=== PATIENT | male | born 1965 | race Caucasian/White ===

== ENCOUNTER 2018-04-23 12:50 | Day surgery (SDC) | payer OTHER, MEDICAID ==
[~2018-04-23 12:50] MED LIST: cefOXitin SODIUM 2 GM in NS 100 ML IV ONE
[2018-04-23] MEDS ORDERED: LR 1,000 ML IV ONE (13:19)
--- NOTE | 2018-04-23 13:40 | PDHPUP ---
History & Physical Update H&P update statement: This history and physical update is based on an assessment of the patient which was completed after admission or registration (within 24 hours), but prior to the surgery/procedure. H&P update: H&P reviewed & patient examined, no change in patient's condition since H&P completed
[2018-04-23] MEDS ORDERED: METHYLENE BLUE 0.5% 50 MG/10 ML AMP ONE (14:36)
[2018-04-23] MEDS ORDERED: HYDROGEN PEROXIDE 236 ML BOTTLE TP ONE (14:36)
[2018-04-23] MEDS ORDERED: BUPIVACAINE/EPI 0.5% 30 ML SDV ONE (14:36)
[2018-04-23] MEDS ORDERED: MIDAZOLAM 2 MG/2 ML VIAL IVP ONE (15:48)
--- NOTE | 2018-04-23 15:52 | PDANEPAE ---
ANE History of Present Illness 53 year old obese male for exam under anesthesia and repair of anal fistula. History of severe depression on MAO inhibitor. Also chronic pain in knees and other joints, managed with Oxycontin 100mg/day and Oxycodone IR 70 mg/day. He has sleep apnea and was told to use C-PAP but he does not. He does no physical activity. ANE Past Medical History - Cardiovascular History Hx Hypertension: Yes Hx Arrhythmias: No Hx Chest Pain: No Hx Coronary Artery / Peripheral Vascular Disease: No Hx CHF / Valvular Disease: No Hx Palpitations: No - Pulmonary History Hx COPD: No Hx Asthma/Reactive Airway Disease: Yes Hx Recent Upper Respiratory Infection: Yes Hx Oxygen in Use at Home: Yes O2 in Use at Home (L/minute): 2 Hx Sleep Apnea: Yes Pulmonary History Comment: uses chewing tobacco - Neurologic History Hx Cerebrovascular Accident: No Hx Seizures: No Hx Dementia: No - Endocrine History Hx Diabetes: No - Renal History Hx Renal Disorders: No - Liver History Hx Hepatic Disorders: No - Neurological & Psychiatric Hx Hx Neurological and Psychiatric Disorders: Yes Neurological / Psychiatric History Comment: depression, anxiety - Cancer History Hx Cancer: No - Congenital Disorder History Hx Congenital Disorders: No - GI History Hx Gastrointestinal Disorders: Yes Gastrointestinal History Comment: GERD - Other Health History Other Health History: obesity, gout, chronic pain, ADD, ADHD,TOPHUS - Surgical History Prior Surgeries: appy. colonoscopies ANE Review of Systems Review of systems is: negative Review of Systems: - Exercise capacity METS (RN): 3 METS ANE Patient History - Allergies Allergies/Adverse Reactions: No Known Allergies Allergy (Unverified 02/03/11 06:16) - Home Medications Home Medications: Clonidine HCl 0 mg PO 02/03/11 [Last Taken Unknown] Indomethacin 0 mg PO TID 02/03/11 [Last Taken 04/16/18] Phenelzine Sulfate [Nardil] 75 mg PO DAILY 02/03/11 [Last Taken 04/23/18] Probenecid 500 mg PO DAILY 02/03/11 [Last Taken 04/23/18] oxyCODONE CR [oxyCONTIN] 40 mg PO TID 02/03/11 [Last Taken 04/20/18] oxyCODONE CR [Oxycontin] 60 mg PO 04/23/18 [Last Taken 04/23/18 3 tabs AM, 2 tabs PM] - NPO status NPO Since - Liquids (Date): 04/23/18 NPO Since - Liquids (Time): 10:00 NPO Since - Solids (Date): 04/22/18 NPO Since - Solids (Time): 23:55 - Family Anes Hx Family Hx Anesthesia Complications: none ANE Labs/Vital Signs - Vital Signs Blood Pressure: 132/81 Heart Rate: 72 Respiratory Rate: 16 O2 Sat (%): 92 Height: 180.34 cm Weight: 117.934 kg ANE Physical Exam - Airway Neck exam: FROM Mallampati Score: Class 3 Mouth exam: normal dental/mouth exam - Pulmonary Pulmonary: no respiratory distress - Cardiovascular Cardiovascular: regular rate and rhythym - ASA Status ASA Status: III ANE Anesthesia Plan Anesthesia Plan: GA w LMA (Opioid tolerance)
[2018-04-23] MEDS ORDERED: fentaNYL 250 MCG/5 ML INJ ONE (16:12)
[2018-04-23] MEDS ORDERED: PROPOFOL/EMULSION 500 MG/50 ML BOTTLE IV ONE ×2 (16:13)
[2018-04-23] MEDS ORDERED: oxyCODONE IR 5 MG TAB PO PRN (16:42)
[2018-04-23] MEDS ORDERED: ALBUTEROL 3 ML DEYVIAL IH PRN (16:42)
[2018-04-23] MEDS ORDERED: LR 500 ML IV PRN (16:42)
[2018-04-23] MEDS ORDERED: NALOXONE HCL 0.4 MG/ML INJ IVP PRN (16:42)
--- NOTE | 2018-04-23 16:49 | POSTOPPROG ---
Post Op Note Date of Operation: 04/23/18 Surgeon: Darek Alonzo Grated Cheese Maker: Kristina Torres Anesthesiologist: Emili Clements Anesthesia: GET(General Endotracheal) Pre-op Diagnosis: anal fissures, internal hemorrhoids Post-op Diagnosis: same Procedure: EUA c internal sphincterotomy, and internal hemorrhoid band ligation Findings: multiple fissures, grade II and III internal hemorrhoids Inf/Abcess present in the surg proc area at time of surgery?: No EBL: Minimal Complications: none
[2018-04-23] MEDS ORDERED: oxyCODONE IR 5 MG TAB ONE (17:07)
--- NOTE | 2018-04-23 17:18 | POSTANESTH ---
Post Anesthetic Evaluation Cardiovascular Status: Normal, Stable Respiratory Status: Normal, Stable Level of Consciousness/Mental Status: Can Participate in Eval Pain Control: Adequate, Prn Tx Ordered Nausea/Vomiting Control: Adequate, Prn Tx Ordered Complications Possibly Related to Anesthesia: None Noted
[2018-04-23 17:39] VITALS: BP 110/74
--- NOTE | 2018-04-24 11:37 | GOP ---
DATE OF OPERATION: 04/23/2018 SURGEON: Darek Alonzo MD PREOPERATIVE DIAGNOSIS: Multiple anal fissures and bleeding hemorrhoids. POSTOPERATIVE DIAGNOSIS: Multiple anal fissures and bleeding hemorrhoids. PROCEDURE PERFORMED: Exam under anesthesia with lateral internal sphincterotomy and internal hemorrh oid rubber-band ligation. FINDINGS: The patient was found to have grade 2-3 internal hemorrhoids and multiple superficial fiss ures around the circumference of the anus. DESCRIPTION OF PROCEDURE: The patient was taken to the operating room where he received a satisfacto ry general endotracheal anesthesia by Dr. Emili Clements. He was placed in the lithotomy position, pr epped and draped in the usual sterile fashion. The anus was infiltrated with 0.5% Marcaine gently di lated 3 fingerbreadths. Multiple fissures were noted as above. There were all superficial. Short i ncision was made at the 3 o'clock position in the intersphincteric line. The internal sphincter was grasped with an Allis clamp and partially divided with electrocautery. Hemostasis was assured and th e wound was closed with 4-0 chromic sutures. The hemorrhoids were then divided into 3 groups at the 11, 7 and 5 o'clock positions and all rubber band ligated without difficulty. He tolerated the proce dure well, was taken to the recovery room in good condition. There were no complications. /[id number]/MODL
== END 2018-04-23 18:01 | disposition home or self-care (01) ==
LOC: FSGY 12:50
PROVIDERS: ATTEND Surgery
DX: K60.1 Chronic anal fissure (principal); K64.2 Third degree hemorrhoids; E66.01 Morbid (severe) obesity due to excess calories; F32.9 Major depressive disorder, single episode, unspecified; F41.9 Anxiety disorder, unspecified; G89.29 Other chronic pain; F17.220 Nicotine dependence, chewing tobacco, uncomplicated; I10 Essential (primary) hypertension; G47.33 Obstructive sleep apnea (adult) (pediatric); K21.9 Gastro-esophageal reflux disease without esophagitis; M10.9 Gout, unspecified
CPT/HCPCS: J0694; J2250; J2704; J3010; Q9968